=== PATIENT | male | born 1995 | race Caucasian/White ===

== ENCOUNTER 2019-12-04 22:00 | Emergency (ER) | payer SELFPAY ==
[~2019-12-04] VITALS: Ht 185 cm; Wt 115.0 kg
--- OUTSIDE RECORDS SUMMARY | 2019-12-04 22:07 | XMS REPORT | Continuity Of Care Document ---
Author Author [facility] Organization [facility] Address [address] [place] [address] Phone Care Team Providers Care Cable Puller Name Role Phone UNASSIGNED, ED PHYSICIAN Unavailable Unavailable MEET PRYOR, JAIRO Unavailable LINDA PRYOR, CLAUDIA De Oliveira AT Results Lab Results Visit/Account #[id number] (July 17, 2015 2:18pm - July 17, 2015 3:54pm) Test Result Date/Time 61180-6: COMPLETE BLOOD COUNT WITH DIFF WHITE BLOOD COUNT(4.0-11.0 10E3/UL) 11.4 10E3/UL July 17, 2015 2:30pm RED BLOOD COUNT(4.50-5.90 10E6/UL) 5.46 10E6/UL July 17, 2015 2:30pm HEMOGLOBIN(13.5-17.5 G/DL) 17.7 G/DL July 17, 2015 2:30pm HEMATOCRIT(41.0-53.0 %) 49.8 % July 17, 2015 2:30pm MEAN CORPUSCULAR VOLUME(82.0-100.0 FL) 91.2 FL July 17, 2015 2:30pm 11152-1: MEAN CORPUSCULAR HEMOGLOBIN(26. 0-34.0 PG) 32.4 PG July 17, 2015 2:30pm MEAN CORPUSCULAR HGB CONC(31.5-36.5 G/DL ) 35.5 G/DL July 17, 2015 2:30pm RED CELL DISTRIBUTION WIDTH(11.5-14.5 %) 12.2 % July 17, 2015 2:30pm 777-3: PLATELET COUNT(150-450 10E3/UL) 229 10E3/UL July 17, 2015 2:30pm MEAN PLATELET VOLUME(8.2-12.4 FL) 10.0 FL July 17, 2015 2:30pm 770-8: NEUTROPHILS % (AUTO)(40-70 %) 72 % July 17, 2015 2:30pm LYMPHOCYTES % (AUTO)(15-45 %) 15 % July 17, 2015 2:30pm 5905-5: MONOCYTES % (AUTO)(2-10 %) 8 % July 17, 2015 2:30pm 713-8: EOSINOPHILS % (AUTO)(0-6 %) 4 % July 17, 2015 2:30pm 706-2: BASOPHILS % (AUTO)(0-1 %) 1 % July 17, 2015 2:30pm 25947-6: IMMATURE GRANS % (AUTO)(0-0 %) 1 % July 17, 2015 2:30pm NUCLEATED RBCS (AUTO)(0-0 %) 0 % July 17, 2015 2:30pm 751-8: NEUTROPHILS # (AUTO)(2.5-7.5 10E3 /UL) 8.2 10E3/UL July 17, 2015 2:30pm 52617-2: LYMPHOCYTES # (AUTO)(1.0-4.0 10 E3/UL) 1.7 10E3/UL July 17, 2015 2:30pm 742-7: MONOCYTES # (AUTO)(0.2-0.8 10E3/U L) 0.9 10E3/UL July 17, 2015 2:30pm 711-2: EOSINOPHILS # (AUTO)(0.0-0.4 10E3 /UL) 0.4 10E3/UL July 17, 2015 2:30pm 704-7: BASOPHILS # (AUTO)(0.0-0.2 10E3/U L) 0.1 10E3/UL July 17, 2015 2:30pm IMMATURE GRANS # (AUTO)(0.0-0.0 10E3/UL) 0.1 10E3/UL July 17, 2015 2:30pm DIFF TYPE AUTOMATED July 17, 2015 2:30pm UA WITH SCREEN FOR CULTURE 5778-6: COLOR,URINE YELLOW July 17, 2015 2:25pm 12200-3: CLARITY,URINE CLEAR July 17, 2015 2:25pm GLUCOSE, URINE(NEGATIVE MG/DL) NEGATIVE MG/DL July 17, 2015 2:25pm URINE BILIRUBIN(NEGATIVE) SMALL July 17, 2015 2:25pm 22870-6: KETONES,URINE(NEGATIVE MG/DL) TRACE MG/DL July 17, 2015 2:25pm 2965-2: URINE SPECIFIC GRAVITY(1.001-1.0 35) Greater than or equal to 1.030 July 17, 2015 2:25pm 11250-5: URINE BLOOD(NEGATIVE) NEGATIVE July 17, 2015 2:25pm 2756-5: URINE PH(5.0-9.0) 5.5 July 17, 2015 2:25pm URINE PROTEIN(Less than 20 MG/DL) TRACE MG/DL July 17, 2015 2:25pm URINE UROBILINOGEN(0.2-1.0 MG/DL) 0.2 MG/DL July 17, 2015 2:25pm URINE NITRITE(NEGATIVE) NEGATIVE July 17, 2015 2:25pm 5799-2: LEUKOCYTE ESTERASE ,URINE(NEGATI VE) NEGATIVE July 17, 2015 2:25pm 630-4: URINE CULTURE NOT INDICATED July 17, 2015 2:25pm URINE MICROSCOPIC REQUIRED YES July 17, 2015 2:25pm URINE WBCS(/HPF) 0-3 /HPF July 17, 2015 2:25pm 11138-3: URINE RBCS(/HPF) 0-3 /HPF July 17, 2015 2:25pm 90474-5: URINE EPITHELIAL CELLS(/HPF) 0-3 /HPF July 17, 2015 2:25pm BACTERIA,URINE(/HPF) NONE SEEN /HPF July 17, 2015 2:25pm URINE CRYSTALS(/HPF) 1+ AMORPHOUS /HPF July 17, 2015 2:25pm URINE CASTS(/LPF) NONE SEEN /LPF July 17, 2015 2:25pm URINE COMMENTS 3+ MUCOUS July 17, 2015 2:25pm 83796-0: COMPLETE METABOLIC PROFILE GLUCOSE(70-110 MG/DL) 97 MG/DL July 17, 2015 2:30pm BLOOD UREA NITROGEN(6-20 MG/DL) 15 MG/DL July 17, 2015 2:30pm CREATININE(0.30-1.00 MG/DL) 0.86 MG/DL July 17, 2015 2:30pm 19643-2: EST GLOMERULAR FILTRATION RATE( Greater than or equal to 60) Greater than or equal to 60 Result Comments: If the patient is of -[place] descent/extraction multiply the eGFR value by 1.212 to obtain the actual eGFR. >=60 mg/dL Normal 30-59 mg/dL Moderate Kidney Disease 15-29 mg/dL Severe Kidney Disease <15 mg/dL Kidney Failure July 17, 2015 2:30pm BUN CREATININE RATIO(10.0-20.0 RATIO) 17.0 RATIO July 17, 2015 2:30pm SODIUM(135-145 MMOL/L) 136 MMOL/L July 17, 2015 2:30pm POTASSIUM(3.6-5.0 MMOL/L) 3.9 MMOL/L July 17, 2015 2:30pm CHLORIDE(101-111 MMOL/L) 101 MMOL/L July 17, 2015 2:30pm 8-9: CO2(21-31 MMOL/L) 25.0 MMOL/L July 17, 2015 2:30pm 83435-6: ANION GAP(8-18) 14 July 17, 2015 2:30pm OSMO CALCULATED(270.0-290.0) 272.7 July 17, 2015 2:30pm CALCIUM(8.5-10.5 MG/DL) 10.0 MG/DL July 17, 2015 2:30pm BILIRUBIN,TOTAL(0.1-1.2 MG/DL) 1.0 MG/DL July 17, 2015 2:30pm ALKALINE PHOSPHATASE(42-121 IU/L) 94 IU/L July 17, 2015 2:30pm ASPARTATE AMINO TRANSFERASE(13-38 IU/L) 33 IU/L July 17, 2015 2:30pm ALANINE AMINOTRANSFERASE(8-29 IU/L) 68 IU/L July 17, 2015 2:30pm 52337-8: TOTAL PROTEIN(6.1-8.0 G/DL) 9.2 G/DL July 17, 2015 2:30pm ALBUMIN(3.5-5.5 G/DL) 5.5 G/DL July 17, 2015 2:30pm 2336-6: GLOBULIN(2.4-3.6) 3.7 July 17, 2015 2:30pm ALBUMIN/GLOBULIN RATIO(0.9-1.8 RATIO) 1.5 RATIO July 17, 2015 2:30pm 3040-3: LIPASE 3040-3: LIPASE(22-51 U/L) 23 U/L July 17, 2015 2:30pm Allergies and Adverse Reactions Allergies and Adverse Reactions Patient Unit Number: [id number] Agent Type Reaction Severity Status NO KNOWN ALLERGIES Drug Allergy Unknown Unknown Active Problem List Problem List Visit/Account #[id number] (July 17, 2015 2:18pm - July 17, 2015 3:54pm) Acute Problems: Code/Condition Comments Documented Start Date Documented Resolv ed Date Code(s) Acute viral syndrome ICD10: B34.9 Acute viral syndrome ICD9: 079.99 Acute viral syndrome SNOMED: 87893303 Acute viral syndrome Plan of Care Plan Of Care Visit/Account #[id number] (July 17, 2015 2:18pm - July 17, 2015 3:54pm) Patient Instructions 1. Return for any new or worse symptoms 2. Follow up with your primary doctor t his week 3. Take Imodium over the counter medici ne as needed for diarrhea Vital Signs Vital Signs Visit/Account #[id number] (July 17, 2015 2:18pm - July 17, 2015 3:54pm) Sign First Result Last Result Code(s) Body Mass Index Body Mass Index (BMI): 29.0 kg/m2 On 2015 2:17pm 55874-8 BMI (body mass index) Body Mass Index as a Calculated Value 29.1 kg/m2 On July 17, 2015 2:17pm 08481-6 BMI (body mass index) Body Surface Area as a Calculated Value 2.24 m2 On July 17, 2015 2:17pm 3140-1 BSA (body surface area) Height (Feet/Inches) 6 [ft_us] 1 [in_us] On July 17, 2015 2:17pm Temperature in Fahrenheit Temperature (Fahrenheit): 97.5 [degF] O n July 17, 2015 2:17pm Temperature (Fahrenheit): 97.6 [degF] O n July 17, 2015 3:54pm 8310-5 Body Temperature Weight in Kilograms Weight (Kilograms): 100 kg On June 302015 2:17pm 3141-9 Weight Measured 50168-5 Body weight measured in kilogra ms Functional Status Functional and Cognitive Status No Functional Status Data Medications Inpatient/Ordered Medications - Medicati ons administered during hospital visit Visit/Account #[id number] (July 17, 2015 2:18pm - July 17, 2015 3:54pm) Medication Route Sig/Schedule Precondition/Indication Comments/I nstructions Codes IV Medication Carriers: NORMAL SALINE(SODIUM CHLORIDE) 1000 ML INJECTION Dose: 1000 ML INTRAVEN .Q1H (Rate: 1000 MLS/HR Duration: 1 HR) Carriers: Sodium Chloride 0.154 MEQ/ML Injectable Solution (RxNorm): 943560 NORMAL SALINE (SODIUM CHLORIDE) NDC: 38390390122 IV Medication Additives: PHENERGAN INJ(PROMETHazine HCL) 25 MG/ML INJECTION Dose: 25 MG Carriers: SODIUM CHLORIDE 100 ML INJECTION Dose: 100 ML INTRAVEN NOW (Rate: 404 MLS/HR Duration: 15 MIN) Additives: Promethazine Hydrochloride 25 MG/ML Injectable Solution (RxNorm): 041574 PHENERGAN INJ (PROMETHazine HCL) NDC: 93044007083 Carriers: Sodium Chloride 0.154 MEQ/ML Injectable Solution (RxNorm): 250023 (SODIUM CHLORIDE) NDC: 79056730196 IMODIUM SOLN(LOPERAMIDE HCL) 2 MG/15 ML LIQUID Dose: 30 ML ORAL NOW Loperamide Hydrochloride 0.133 MG/ML Ora l Suspension (RxNorm): 1434725 IMODIUM SOLN (LOPERAMIDE HCL) NDC: 62102770959 BENTYL(DICYCLOMINE HCL) 10 MG CAP Dose: 20 MG ORAL NOW Label Comments: MAY INCREASE FALL RISK Dicyclomine Hydrochloride 10 MG Oral Cap leah (RxNorm): 187523 BENTYL (DICYCLOMINE HCL) NDC: 78424436972 Discharge Medications - Medications that patient should continue to take. Review with physician Visit/Account #[id number] (July 17, 2015 2:18pm - July 17, 2015 3:54pm) Medication Route Sig/Schedule Precondition/Indication Comments/I nstructions Codes PHENERGAN(PROMETHazine HCL) 25 MG TAB Dose: 25 MG ORAL 4 TIMES DAILY NAUSEA Promethazine Hydrochloride 25 MG Oral Ta blet (RxNorm): 571680 PHENERGAN (PROMETHazine HCL) NDC: 06814206676 Bentyl(DICYCLOMINE HCL) 20 MG TABLET Dose: 20 MG ORAL 4 TIMES DAILY PAIN Dicyclomine Hydrochloride 20 MG Oral Tab let (RxNorm): 921789 Bentyl (DICYCLOMINE HCL) [facility]: [id number] History Of Encounters Encounters Visit/Account #[id number] (July 17, 2015 2:18pm - July 17, 2015 3:54pm) Account Status Physican Of Record Reason For Visit Visit Diagnosis Start Date/Time Stop Date/Time ER CLAUDIA MCKEON MD ? FOOD POISONING R10.9: UNSPECIFIED ABDOMINAL PAIN ICD10 Jul 17, 2015 2:18pm Jul 17, 2015 3:54pm History of Procedures Procedure List No procedures recorded. Discharge Instructions Discharge Instructions Visit/Account #[id number] (July 17, 2015 2:18pm - July 17, 2015 3:54pm) DISCHARGE INSTRUCTIONS Physician Galileo garay Social History Social History No Social History Data. Immunizations Immunizations Patient Unit Number: [id number] Immunizations No immunizations recorded.
--- OUTSIDE RECORDS SUMMARY | 2019-12-04 22:07 | XMS REPORT | Continuity Of Care Document ---
Author Author [facility] Organization [facility] Address [address] [place] [address] Phone Care Team Providers Care Mobile Lounge Driver Or Operator Name Role Phone UNASSIGNED, ED PHYSICIAN Unavailable Unavailable KURT LOWE MD AT NON STAFF, PROVIDER Unavailable Unavailable Results Lab Results Visit/Account #[id number] (January 16 16 4:16pm - January 17, 2016 5:24pm) Test Result Date/Time 79663-1: COMPLETE BLOOD COUNT WITH DIFF WHITE BLOOD COUNT(4.0-11.0 10E3/UL) 8.9 10E3/UL January 17, 2016 4:30pm RED BLOOD COUNT(4.50-5.90 10E6/UL) 4.65 10E6/UL January 17, 2016 4:30pm HEMOGLOBIN(13.5-17.5 G/DL) 14.7 G/DL January 17, 2016 4:30pm HEMATOCRIT(41.0-53.0 %) 41.4 % January 17, 2016 4:30pm MEAN CORPUSCULAR VOLUME(82.0-100.0 FL) 89.0 FL January 17, 2016 4:30pm 64869-0: MEAN CORPUSCULAR HEMOGLOBIN(26. 0-34.0 PG) 31.6 PG January 17, 2016 4:30pm MEAN CORPUSCULAR HGB CONC(31.5-36.5 G/DL ) 35.5 G/DL January 17, 2016 4:30pm RED CELL DISTRIBUTION WIDTH(11.5-14.5 %) 11.8 % January 17, 2016 4:30pm 777-3: PLATELET COUNT(150-450 10E3/UL) 208 10E3/UL January 17, 2016 4:30pm MEAN PLATELET VOLUME(8.2-12.4 FL) 10.6 FL January 17, 2016 4:30pm 770-8: NEUTROPHILS % (AUTO)(40-70 %) 56 % January 17, 2016 4:30pm LYMPHOCYTES % (AUTO)(15-45 %) 31 % January 17, 2016 4:30pm 5905-5: MONOCYTES % (AUTO)(2-10 %) 7 % January 17, 2016 4:30pm 713-8: EOSINOPHILS % (AUTO)(0-6 %) 4 % January 17, 2016 4:30pm 706-2: BASOPHILS % (AUTO)(0-1 %) 1 % January 17, 2016 4:30pm 78634-5: IMMATURE GRANS % (AUTO)(0-0 %) 0 % January 17, 2016 4:30pm NUCLEATED RBCS (AUTO)(0-0 %) 0 % January 17, 2016 4:30pm 751-8: NEUTROPHILS # (AUTO)(2.5-7.5 10E3 /UL) 5.0 10E3/UL January 17, 2016 4:30pm 08681-3: LYMPHOCYTES # (AUTO)(1.0-4.0 10 E3/UL) 2.8 10E3/UL January 17, 2016 4:30pm 742-7: MONOCYTES # (AUTO)(0.2-0.8 10E3/U L) 0.7 10E3/UL January 17, 2016 4:30pm 711-2: EOSINOPHILS # (AUTO)(0.0-0.4 10E3 /UL) 0.4 10E3/UL January 17, 2016 4:30pm 704-7: BASOPHILS # (AUTO)(0.0-0.2 10E3/U L) 0.1 10E3/UL January 17, 2016 4:30pm IMMATURE GRANS # (AUTO)(0.0-0.0 10E3/UL) 0.0 10E3/UL January 17, 2016 4:30pm DIFF TYPE AUTOMATED January 17, 2016 4:30pm 68659-6: D-DIMER 11307-1: D-DIMER(0.00-0.49 UG/ML) 0.30 UG/ML January 17, 2016 4:30pm 07493-2: URINALYSIS 5778-6: COLOR,URINE YELLOW January 17, 2016 4:43pm 57850-7: CLARITY,URINE CLEAR January 17, 2016 4:43pm GLUCOSE, URINE(NEGATIVE MG/DL) NEGATIVE MG/DL January 17, 2016 4:43pm URINE BILIRUBIN(NEGATIVE) NEGATIVE January 17, 2016 4:43pm KETONES,URINE(NEGATIVE MG/DL) NEGATIVE MG/DL January 17, 2016 4:43pm URINE SPECIFIC GRAVITY(1.001-1.035) Greater than or equal to 1.030 January 17, 2016 4:43pm 38159-6: URINE BLOOD(NEGATIVE) NEGATIVE January 17, 2016 4:43pm 2756-5: URINE PH(5.0-9.0) 6.0 January 17, 2016 4:43pm URINE PROTEIN(Less than 20 MG/DL) NEGATIVE MG/DL January 17, 2016 4:43pm 95378-6: URINE UROBILINOGEN(0.2-1.0 MG/D L) 0.2 MG/DL January 17, 2016 4:43pm URINE NITRITE(NEGATIVE) NEGATIVE January 17, 2016 4:43pm 5799-2: LEUKOCYTE ESTERASE ,URINE(NEGATI VE) NEGATIVE January 17, 2016 4:43pm URINE MICROSCOPIC REQUIRED NO January 17, 2016 4:43pm 53589-0: COMPLETE METABOLIC PROFILE GLUCOSE(70-110 MG/DL) 90 MG/DL January 17, 2016 4:30pm BLOOD UREA NITROGEN(6-20 MG/DL) 15 MG/DL January 17, 2016 4:30pm CREATININE(0.50-1.20 MG/DL) 0.92 MG/DL January 17, 2016 4:30pm 75108-5: EST GLOMERULAR FILTRATION RATE( Greater than or equal to 60) Greater than or equal to 60 Result Comments: If the patient is of -[place] descent/extraction multiply the eGFR value by 1.212 to obtain the actual eGFR. >=60 mg/dL Normal 30-59 mg/dL Moderate Kidney Disease 15-29 mg/dL Severe Kidney Disease <15 mg/dL Kidney Failure January 17, 2016 4:30pm BUN CREATININE RATIO(10.0-20.0 RATIO) 16.0 RATIO January 17, 2016 4:30pm SODIUM(135-145 MMOL/L) 137 MMOL/L January 17, 2016 4:30pm POTASSIUM(3.6-5.0 MMOL/L) 4.0 MMOL/L January 17, 2016 4:30pm CHLORIDE(101-111 MMOL/L) 106 MMOL/L January 17, 2016 4:30pm 9: CO2(21-31 MMOL/L) 24 MMOL/L January 17, 2016 4:30pm ANION GAP(8-18) 11 January 17, 2016 4:30pm OSMO CALCULATED(270.0-290.0) 274.2 January 17, 2016 4:30pm CALCIUM(8.5-10.5 MG/DL) 9.5 MG/DL January 17, 2016 4:30pm BILIRUBIN,TOTAL(0.1-1.2 MG/DL) 0.7 MG/DL January 17, 2016 4:30pm ALKALINE PHOSPHATASE(42-121 IU/L) 79 IU/L January 17, 2016 4:30pm ASPARTATE AMINO TRANSFERASE(13-38 IU/L) 28 IU/L January 17, 2016 4:30pm ALANINE AMINOTRANSFERASE(8-29 IU/L) 44 IU/L January 17, 2016 4:30pm TOTAL PROTEIN(6.4-8.2 G/DL) 7.6 G/DL January 17, 2016 4:30pm ALBUMIN(3.5-5.5 G/DL) 4.8 G/DL January 17, 2016 4:30pm GLOBULIN(2.4-3.6) 2.8 January 17, 2016 4:30pm ALBUMIN/GLOBULIN RATIO(0.9-1.8 RATIO) 1.7 RATIO January 17, 2016 4:30pm 40866-2: CARDIAC TROPONIN I 51450-0: CARDIAC TROPONIN I(0.01-0.04 NG /ML) Less than 0.01 NG/ML Result Comments: REFERENCE RANGES: NEGATIVE < 0.04 NG/ML POSSIBLE MYCARDIAL INVOLVEMENT >/= 0.04 NG/ML INTERPRET TROPONIN I RESULT IN LIGHT OF THE TOTAL CLINICAL PRESENTATION INCLUDING CLINICAL HISTORY. ANY CONDITION RESULTING IN MYOCARDIAL INJURY CAN POTENTIALLY ELEVATE TROPONIN I LEVELS ABOVE EXPECTED NORMAL RANGES. NOTE NEW REFERENCE RANGE January 17, 2016 4:30pm Allergies and Adverse Reactions Allergies and Adverse Reactions Patient Unit Number: [id number] Agent Type Reaction Severity Status NO KNOWN ALLERGIES Drug Allergy Unknown Unknown Active Problem List Problem List Visit/Account #[id number] (January 16 4:16pm - January 17, 2016 5:24pm) Acute Problems: Code/Condition Comments Documented Start Date Documented Resolv ed Date Code(s) Heat syncope, initial encounter ICD10: T67.1XXA Heat syncope ICD9: 992.1 Heat syncope SNOMED: 85237935 Heat syncope Plan of Care Plan Of Care Visit/Account #[id number] (January 16 4:16pm - January 17, 2016 5:24pm) Patient Instructions Follow with primary care Dr. in 5-7 days . Drink a lot of oral fluids and take adequate rest. Return to the emergency room if symptoms worsens or has any concern. Vital Signs Vital Signs Visit/Account #[id number] (January 16 4:16pm - January 17, 2016 5:24pm) Sign First Result Last Result Code(s) Temperature in Fahrenheit Temperature (Fahrenheit): 101.2 [degF] On January 17, 2016 4:15pm Temperature (Fahrenheit): 98.2 [degF] O n January 17, 2016 5:24pm 8310-5 Body Temperature Weight in Kilograms Weight (Kilograms): 111.2 kg On December 4:15pm 3141-9 Weight Measured 08007-0 Body weight measured in kilogra ms Functional Status Functional and Cognitive Status No Functional Status Data Medications Inpatient/Ordered Medications - Medicati ons administered during hospital visit Visit/Account #[id number] (January 16 4:16pm - January 17, 2016 5:24pm) Medication Route Sig/Schedule Precondition/Indication Comments/I nstructions Codes IV Medication Carriers: NORMAL SALINE(SODIUM CHLORIDE) 1000 ML INJECTION Dose: 1000 ML INTRAVEN .Q1H (Rate: 1000 MLS/HR Duration: 1 HR) Carriers: Sodium Chloride 0.154 MEQ/ML Injectable Solution (RxNorm): 986354 NORMAL SALINE (SODIUM CHLORIDE) [facility]: 99132485977 History Of Encounters Encounters Visit/Account #[id number] (January 16 4:16pm - January 17, 2016 5:24pm) Account Status Physican Of Record Reason For Visit Visit Diagnosis Start Date/Time Stop Date/Time ER KURT LOWE MD WORKING IN HEAT, PASSED OUT R50.9: FEVER, UNSPECIFIED ICD10 Jan 17, 2016 4:16pm Jan 17, 2016 5:24pm History of Procedures Procedure List No procedures recorded. Discharge Instructions Discharge Instructions Visit/Account #[id number] (January 16 4:16pm - January 17, 2016 5:24pm) DISCHARGE INSTRUCTIONS Physician Galileo garay Social History Social History No Social History Data. Immunizations Immunizations Patient Unit Number: [id number] Immunizations No immunizations recorded.
--- OUTSIDE RECORDS SUMMARY | 2019-12-04 22:07 | XMS REPORT | Continuity Of Care Document ---
Author Author [facility] Organization [facility] Address [address] [place] [address] Phone Care Team Providers Care Water Pollution Specialist Name Role Phone COLIN PRYOR, MACK Bradley AT Results Results No results recorded. Allergies and Adverse Reactions Allergies and Adverse Reactions Patient Unit Number: [id number] Agent Type Reaction Severity Status NO KNOWN ALLERGIES Drug Allergy Unknown Unknown Active Problem List Problem List Visit/Account #[id number] (September 09 5:53am - September 10, 2015 6:16am) Acute Problems: Code/Condition Comments Documented Start Date Documented Resolv ed Date Code(s) Lower GI bleed ICD10: K92.2 Lower gastrointestinal hemorrhage ICD9: 578.9 Lower gastrointestinal hemorrhage SNOMED: 81643254 Lower gastrointestinal hemorrhage Plan of Care Plan Of Care Visit/Account #[id number] (September 09 5:53am - September 10, 2015 6:16am) Patient Instructions Followup with Dr Melgoza, primary docto r or Dr Cortes, doctor that would do the colonoscopy, call on Friday Return for abdominal pain, increased bleeding, passing out, any concern Vital Signs Vital Signs Visit/Account #[id number] (September 09 5:53am - September 10, 2015 6:16am) Sign First Result Last Result Code(s) Body Mass Index Body Mass Index (BMI): 33.0 kg/m2 On [facility] 2015 5:52am 85569-2 BMI (body mass index) Body Mass Index as a Calculated Value 33.1 kg/m2 On September 10, 2015 5:52am 03178-8 BMI (body mass index) Body Surface Area as a Calculated Value 2.37 m2 On September 10, 2015 5:52am 3140-1 BSA (body surface area) Height (Feet/Inches) 6 [ft_us] 1 [in_us] On September 10, 2015 5 :52am Temperature in Fahrenheit Temperature (Fahrenheit): 97.9 [degF] O n September 10, 2015 5:52am 8310-5 Body Temperature Weight in Kilograms Weight (Kilograms): 113.64 kg On September 10, 2015 5:52am 3141-9 Weight Measured 23505-7 Body weight measured in kilogra ms Functional Status Functional and Cognitive Status No Functional Status Data Medications Medications Patient Unit Number: [id number] Medication No medications recorded. History Of Encounters Encounters Visit/Account #[id number] (September 09 016 5:53am - September 10, 2015 6:16am) Account Status Physican Of Record Reason For Visit Visit Diagnosis Start Date/Time Stop Date/Time LAMONT SHAW MD RECTAL BLOOD K92.1: MELENA ICD10 Sep 10, 2015 5:53am Sep 10, 2015 6:16am History of Procedures Procedure List No procedures recorded. Discharge Instructions Discharge Instructions Visit/Account #[id number] (September 09 016 5:53am - September 10, 2015 6:16am) DISCHARGE INSTRUCTIONS Physician Galileo garay Social History Social History No Social History Data. Immunizations Immunizations Patient Unit Number: [id number] Immunizations No immunizations recorded.
--- OUTSIDE RECORDS SUMMARY | 2019-12-04 22:07 | XMS REPORT | Continuity Of Care Document ---
Author Author [facility] r Organization [facility] Address [address] [place] [address] Phone Care Team Providers Care Checker And Packer Name Role Phone KURT LOWE MD AT Results Results No results recorded. Allergies and Adverse Reactions Allergies and Adverse Reactions Patient Unit Number: [id number] Agent Type Reaction Severity Status NO KNOWN ALLERGIES Drug Allergy Unknown Unknown Active Problem List Problem List Visit/Account #[id number] (September 26 5:49pm - September 26, 2017 8:00pm) Acute Problems: Code/Condition Comments Documented Start Date Documented Resolv ed Date Code(s) Puncture wound ICD9: 879.8 Puncture wound SNOMED: 486239141 Puncture wound Elbow pain, left ICD10: M25.522 Elbow pain, left SNOMED: 81256799 Left elbow pain Knee pain, right ICD10: M25.561 Knee pain, right SNOMED: 91723392 Right knee pain Plan of Care Plan Of Care Visit/Account #[id number] (September 26 018 5:49pm - September 26, 2017 8:00pm) Patient Instructions Keep affected area clean and dry. May cl eanse with soap and warm water. Do not soak in bathtub, hot tub, pool, etc. until stitches are removed. Wear sling as needed for comfort. Return in 7-10 days for suture removal. May return to ED, minor emergency clinic, or PCP. Watch for signs of infection such as increasing redness, pain, warmth, or yellow/green drainage from wound. Return to ED for new concerns or worsening symptoms. Vital Signs Vital Signs Visit/Account #[id number] (September 26 5:49pm - September 26, 2017 8:00pm) Sign First Result Last Result Code(s) Temperature in Fahrenheit Temperature (Fahrenheit): 98.0 [degF] O n September 26, 2017 5:43pm Temperature (Fahrenheit): 98.0 [degF] O n September 26, 2017 8:00pm 8310-5 Body Temperature Weight in Kilograms Weight (Kilograms): 127.2700 kg On 2017 5:43pm 3141-9 Weight Measured Functional Status Functional and Cognitive Status No Functional Status Data Medications Inpatient/Ordered Medications - Medicati ons administered during hospital visit Visit/Account #[id number] (September 26 5:49pm - September 26, 2017 8:00pm) Medication Route Sig/Schedule Precondition/Indication Comments/I nstructions Codes NORCO 7.5-325(HYDROcodone BIT/ACETAMINOP HEN) 1 TAB TAB Dose: 1 TAB ORAL NOW Label Comments: <<may be substituted for 7.5/500>> REC MAX DAILY ACETAMINOPHEN: 4000 MG/24 HR MAY INCREASE FALL RISK Acetaminophen 325 MG / Hydrocodone Angelo trate 7.5 MG Oral Tablet (RxNorm): 851259 NORCO 7.5-325 (HYDROcodone BIT/ACETAMINOPHEN) NDC: 98181007140 BACITRACIN 0.9 GM OINTMENT Dose: 0 GM TOPICALLY DAILY Label Comments: 1 APPLICATION Special Dose Instructions: 1 APPLICATION TO bacitracin zinc 0.5 UNT/MG Topical Ointm ent (RxNorm): 6805809 (BACITRACIN) NDC: 01469753014 Discharge Medications - Medications that patient should continue to take. Review with physician Visit/Account #[id number] (September 26 5:49pm - September 26, 2017 8:00pm) Medication Route Sig/Schedule Precondition/Indication Comments/I nstructions Codes KEFLEX(CEPHALEXIN MONOHYDRATE) 500 MG CA PSULE Dose: 500 MG ORAL 3 TIMES A DAY Cephalexin 500 MG Oral Capsule (RxNorm): 365904 KEFLEX (CEPHALEXIN MONOHYDRATE) NDC: 60317778362 History Of Encounters Encounters Visit/Account #[id number] (September 26 5:49pm - September 26, 2017 8:00pm) Account Status Physican Of Record Reason For Visit Visit Diagnosis Start Date/Time Stop Date/Time ER KURT LOWE MD LAC TO LEFT ELBOW S51.032A: PUNCTURE WOUND W/O FOREIGN BOD Y OF LEFT ELBOW, INIT ENCNTR ICD10 Sep 26, 2017 5:49pm Sep 26, 2017 8:00pm History of Procedures Procedure List No procedures recorded. Discharge Instructions Discharge Instructions Visit/Account #[id number] (September 26 5:49pm - September 26, 2017 8:00pm) DISCHARGE INSTRUCTIONS Physician Galileo garay Social History Social History No Social History Data. Immunizations Immunizations Visit/Account #[id number] (September 26 5:49pm - September 26, 2017 8:00pm) Immunization Date Comments/Instructions Codes ADACEL(DIPHTH/TETANUS/ACEL. PERTUSSIS) 0 .5 ML INJECTION September 26, 2017 7:51pm Label Comments: Review Vaccine Information Sheet with patient and complete Vaccine Documentation/Consent Form prior to administering dose. *FAX COMPLETED PROVIDER INFORMATION SIDE OF VACCINE DOCUMENTATION FORM TO PRIMARY PHYSICIAN'S OFFICE AND PLACE ON CHART* TAYLOR BEST ADACEL (DIPHTH/TETANUS/ACEL. PERTUSSIS) [facility]: [id number]
--- OUTSIDE RECORDS SUMMARY | 2019-12-04 22:07 | XMS REPORT | Continuity Of Care Document ---
Author Author [facility] Organization [facility] Address [address] [place] [address] Phone Care Team Providers Care Atm Manager Name Role Phone NON STAFF, PROVIDER Unavailable Unavailable SRIKANTH PRYOR, NICCI Thorpe AT Results Results No results recorded. Allergies and Adverse Reactions Allergies and Adverse Reactions Patient Unit Number: [id number] Agent Type Reaction Severity Status NO KNOWN ALLERGIES Drug Allergy Unknown Unknown Active Problem List Problem List No problem list recorded. Plan of Care Plan Of Care Visit/Account #[id number] (November 17 4:19pm - November 17, 2016 5:43pm) Patient Instructions 1. Home, rest 2. Keep splint in place except to shower 3. Follow-up with PCP for a recheck in o ne week 4. Take ibuprofen for pain, norco 1-2 ta bs every 6 hours as needed for breakthrough pain. do not drive or operate machinery after taking Vital Signs Vital Signs Visit/Account #[id number] (November 17 7 4:19pm - November 17, 2016 5:43pm) Sign First Result Last Result Code(s) Temperature in Fahrenheit Temperature (Fahrenheit): 98.5 [degF] O n November 17, 2016 4:15pm Temperature (Fahrenheit): 98.1 [degF] O n November 17, 2016 5:43pm 8310-5 Body Temperature Weight in Kilograms Weight (Kilograms): 123.0000 kg On November 17, 2016 4:15pm 3141-9 Weight Measured Functional Status Functional and Cognitive Status No Functional Status Data Medications Discharge Medications - Medications that patient should continue to take. Review with physician Visit/Account #[id number] (November 17 4:19pm - November 17, 2016 5:43pm) Medication Route Sig/Schedule Precondition/Indication Comments/I nstructions Codes NORCO 5-325 TABLET(HYDROcodone BIT/ACETA MINOPHEN) 1 EACH TABLET Dose: 1-2 TAB ORAL EVERY 6 HOURS PAIN Acetaminophen 325 MG / Hydrocodone Angelo trate 5 MG Oral Tablet (RxNorm): 864786 NORCO 5-325 TABLET (HYDROcodone BIT/ACETAMINOPHEN) NDC: 44241806034 History Of Encounters Encounters Visit/Account #[id number] (November 17 4:19pm - November 17, 2016 5:43pm) Account Status Physican Of Record Reason For Visit Visit Diagnosis Start Date/Time Stop Date/Time ER NICCI DUKE MD L 5TH FINGER VS CAR DOOR Not Available November 17, 2016 4:19pm November 17, 2016 5:43pm History of Procedures Procedure List No procedures recorded. Discharge Instructions Discharge Instructions Visit/Account #[id number] (November 17 4:19pm - November 17, 2016 5:43pm) DISCHARGE INSTRUCTIONS Physician Galileo garay Social History Social History No Social History Data. Immunizations Immunizations Visit/Account #[id number] (November 17 4:19pm - November 17, 2016 5:43pm) Immunization Date Comments/Instructions Codes ADACEL(DIPHTH/TETANUS/ACEL. PERTUSSIS) 0 .5 ML INJECTION November 17, 2016 4:43pm Label Comments: Review Vaccine Information Sheet with patient and complete Vaccine Documentation/Consent Form prior to administering dose. *FAX COMPLETED PROVIDER INFORMATION SIDE OF VACCINE DOCUMENTATION FORM TO PRIMARY PHYSICIAN'S OFFICE AND PLACE ON CHART* SHAKE WELL ADACEL (DIPHTH/TETANUS/ACEL. PERTUSSIS) CVX: 115 ADACEL (DIPHTH/TETANUS/ACEL. PERTUSSIS) ND: [phone]
--- OUTSIDE RECORDS SUMMARY | 2019-12-04 22:07 | XMS REPORT | Continuity Of Care Document ---
Author Author [facility] r Organization [facility] Address [address] [place] [address] Phone Care Team Providers Care Temporary Receptionist Name Role Phone UNASSIGNED, ED PHYSICIAN Unavailable Unavailable LINDA PRYOR, CLAUDIA De Oliveira AT Results Results No results recorded. Allergies and Adverse Reactions Allergies and Adverse Reactions Patient Unit Number: [id number] Agent Type Reaction Severity Status NO KNOWN ALLERGIES Drug Allergy Unknown Unknown Active Problem List Problem List No problem list recorded. Plan of Care Plan Of Care Visit/Account #[id number] (November 28 7:25pm - November 28, 2016 8:37pm) Patient Instructions Keep area clean and dry, wash with mild soap and water daily and reapply new dressing or bandage with antibiotic ointment Return for any new or worsening symptoms, any emergent concerns Vital Signs Vital Signs Visit/Account #[id number] (November 28 7:25pm - November 28, 2016 8:37pm) Sign First Result Last Result Code(s) Body Mass Index Body Mass Index (BMI): 33.0 kg/m2 On 2016 7:24pm 71087-3 BMI (body mass index) Body Mass Index as a Calculated Value 34.0 kg/m2 On November 28, 2016 7:24pm 09398-5 BMI (body mass index) Body Surface Area as a Calculated Value 2.34 m2 On November 28, 2016 7:24pm 3140-1 BSA (body surface area) Height (Feet/Inches) 6 [ft_us] On November 28, 2016 7:24pm 8302-2 Height Temperature in Fahrenheit Temperature (Fahrenheit): 98.0 [degF] O n November 28, 2016 7:24pm Temperature (Fahrenheit): 98.7 [degF] O n November 28, 2016 8:37pm 8310-5 Body Temperature Weight in Kilograms Weight (Kilograms): 113.6400 kg On November 28, 2016 7:24pm 3141-9 Weight Measured Functional Status Functional and Cognitive Status No Functional Status Data Medications Inpatient/Ordered Medications - Medicati ons administered during hospital visit Visit/Account #[id number] (November 28 7:25pm - November 28, 2016 8:37pm) Medication Route Sig/Schedule Precondition/Indication Comments/I nstructions Codes LET GEL SYR(LIDOCAINE/EPINEPHR/TETRACAIN E) 3 ML GEL Dose: 3 ML TOPICALLY NOW Label Comments: LIDOCAINE 4%-EPINEPHRINE 0.18%-TETRACAINE 0.5%-LUBR JELLY History Of Encounters Encounters Visit/Account #[id number] (November 28 7 7:25pm - November 28, 2016 8:37pm) Account Status Physican Of Record Reason For Visit Visit Diagnosis Start Date/Time Stop Date/Time ER CLAUDIA MCKEON MD CYST IN GROIN Not Available Nov 28, 2016 7:25pm Nov 28, 2016 8:37pm History of Procedures Procedure List No procedures recorded. Discharge Instructions Discharge Instructions Visit/Account #[id number] (November 28 7:25pm - November 28, 2016 8:37pm) DISCHARGE INSTRUCTIONS Physician Galileo garay Social History Social History No Social History Data. Immunizations Immunizations Patient Unit Number: [id number] Immunizations No immunizations recorded.
--- OUTSIDE RECORDS SUMMARY | 2019-12-04 22:07 | XMS REPORT | Continuity Of Care Document ---
Author Author [facility] r Organization [facility] Address [address] [place] [address] Phone Care Team Providers Care Snowboard Instructor Name Role Phone Unavailable Unavailable MEET PRYOR, JAIRO AT Results Results No results recorded. Allergies and Adverse Reactions Allergies and Adverse Reactions Patient Unit Number: [id number] Agent Type Reaction Severity Status NO KNOWN ALLERGIES Drug Allergy Unknown Unknown Active Problem List Problem List Visit/Account #[id number] (October 02 4:08pm - October 02, 2017 6:34pm) Acute Problems: Code/Condition Comments Documented Start Date Documented Resolv ed Date Code(s) Puncture wound ICD9: 879.8 Puncture wound SNOMED: 601402106 Puncture wound Plan of Care Plan Of Care Visit/Account #[id number] (October 02 4:08pm - October 02, 2017 6:34pm) Patient Instructions 1. Home, rest 2. Take antibiotics as prescribed 3. Warm compresses to the abscess once a day as well 4. Follow-up with ortho Dr. Ortega next week, call for an appt 5. Remove the packing in 48 hours 6. Return for any concerns or worsening Vital Signs Vital Signs Visit/Account #[id number] (October 02 4:08pm - October 02, 2017 6:34pm) Sign First Result Last Result Code(s) Temperature in Fahrenheit Temperature (Fahrenheit): 99.2 [degF] O n October 02, 2017 4:07pm Temperature (Fahrenheit): 98.0 [degF] O n October 02, 2017 6:34pm 8310-5 Body Temperature Functional Status Functional and Cognitive Status No Functional Status Data Medications Discharge Medications - Medications that patient should continue to take. Review with physician Visit/Account #[id number] (October 02 4:08pm - October 02, 2017 6:34pm) Medication Route Sig/Schedule Precondition/Indication Comments/I nstructions Codes BACTRIM DS(TRIMETHOPRIM/SULFAMETHOXAZOLE ) 1 EACH TABLET Dose: 1 TAB ORAL TWICE A DAY Sulfamethoxazole 800 MG / Trimethoprim 1 60 MG Oral Tablet [Bactrim] (RxNorm): 140145 BACTRIM DS (TRIMETHOPRIM/SULFAMETHOXAZOLE) NDC: 42327754089 KEFLEX(CEPHALEXIN MONOHYDRATE) 500 MG CA PSULE Dose: 500 MG ORAL EVERY 6 HOURS Cephalexin 500 MG Oral Capsule (RxNorm): 036614 KEFLEX (CEPHALEXIN MONOHYDRATE) NDC: 96542277884 History Of Encounters Encounters Visit/Account #[id number] (October 02 4:08pm - October 02, 2017 6:34pm) Account Status Physican Of Record Reason For Visit Visit Diagnosis Start Date/Time Stop Date/Time ER JAIRO DSOUZA MD LEFT ARM INFECTION S41.132A: PUNCTURE WOUND W/O FOREIGN BOD Y OF LEFT UPPER ARM, INIT ICD10 Oct 02, 2017 4:08pm Oct 02, 2017 6:34pm History of Procedures Procedure List No procedures recorded. Discharge Instructions Discharge Instructions Visit/Account #[id number] (October 02 4:08pm - October 02, 2017 6:34pm) DISCHARGE INSTRUCTIONS Physician Galileo garay Social History Social History No Social History Data. Immunizations Immunizations Patient Unit Number: [id number] Immunizations No immunizations recorded.
--- OUTSIDE RECORDS SUMMARY | 2019-12-04 22:07 | XMS REPORT | Continuity Of Care Document ---
Author Author [facility] Organization [facility] Address [address] [place] [address] Phone Care Team Providers Care Reinforced Ironworker Name Role Phone UNASSIGNED, ED PHYSICIAN Unavailable Unavailable CHRISSY PRYOR, KURT G AT Results Lab Results Visit/Account #[id number] (April 26, 2015 8:12pm - April 26, 2015 9:34pm) Test Result Date/Time 75935-9: URINALYSIS 5778-6: COLOR,URINE YELLOW April 26, 2015 8:47pm 62381-8: CLARITY,URINE CLEAR April 26, 2015 8:47pm GLUCOSE, URINE(NEGATIVE MG/DL) NEGATIVE MG/DL April 26, 2015 8:47pm URINE BILIRUBIN(NEGATIVE) NEGATIVE April 26, 2015 8:47pm 59316-7: KETONES,URINE(NEGATIVE MG/DL) NEGATIVE MG/DL April 26, 2015 8:47pm 2965-2: URINE SPECIFIC GRAVITY(1.001-1.0 35) 1.020 April 26, 2015 8:47pm 28577-3: URINE BLOOD(NEGATIVE) NEGATIVE April 26, 2015 8:47pm 2756-5: URINE PH(5.0-9.0) 6.0 April 26, 2015 8:47pm URINE PROTEIN(Less than 20 MG/DL) NEGATIVE MG/DL April 26, 2015 8:47pm URINE UROBILINOGEN(0.2-1.0 MG/DL) 0.2 MG/DL April 26, 2015 8:47pm URINE NITRITE(NEGATIVE) NEGATIVE April 26, 2015 8:47pm 5799-2: LEUKOCYTE ESTERASE ,URINE(NEGATI VE) NEGATIVE April 26, 2015 8:47pm URINE MICROSCOPIC REQUIRED NO April 26, 2015 8:47pm RAPID PLASMA REAGIN RAPID PLASMA REAGIN(NONREACTIVE) NONREACTIVE April 26, 2015 8:57pm HIV-1/O/2 44609-0: HIV-1/O/2 AB, QUAL(Non Reactive ) Non Reactive Result Comments: Performed at: [facility] [address] [address], [place], [place] [id number] Freezing Machine Operator: KATERINA Busby MD, Phone: [phone] April 26, 2015 8:57pm 51744-1: HIV-1/O/2 AB, INDEX(Less than 1 .00) Less than 1.00 Result Comments: Index Value: Specimen reactivity relative to the negative cutoff. April 26, 2015 8:57pm Microbiology Results Visit/Account #[id number] (April 26, 2015 8:12pm - April 26, 2015 9:34pm) Procedure Result CHLAMYDIA/GC (PCR) CHLAMYDIA/GC (PCR) Result Instance On April 26, 2015 8:47pm Source: URINE Result Prompts: CHLAMYDIA TRACHOMATIS NEGATIVE NEISSERIA GONORRHOEAE NEGATIVE Allergies and Adverse Reactions Allergies and Adverse Reactions Patient Unit Number: [id number] Agent Type Reaction Severity Status NO KNOWN ALLERGIES Drug Allergy Unknown Unknown Active Problem List Problem List Visit/Account #[id number] (April 26, 2015 8:12pm - April 26, 2015 9:34pm) Acute Problems: Code/Condition Comments Documented Start Date Documented Resolv ed Date Code(s) Balanoposthitis ICD10: N47.6 Balanoposthitis ICD9: 607.1 Balanoposthitis SNOMED: 03158100 Balanoposthitis Plan of Care Plan Of Care Visit/Account #[id number] (April 26, 2015 8:12pm - April 26, 2015 9:34pm) Patient Instructions Follow with her primary care DrNani in one week. Apply bactroban ointment tid for 7 days. Return to the emergency room if has any concerns. Vital Signs Vital Signs Visit/Account #[id number] (April 26, 2015 8:12pm - April 26, 2015 9:34pm) Sign First Result Last Result Code(s) Body Mass Index Body Mass Index (BMI): 27.0 kg/m2 On Oc 2014 8:08pm 22424-1 BMI (body mass index) Body Mass Index as a Calculated Value 27.7 kg/m2 On April 26, 2015 8:08pm 65580-4 BMI (body mass index) Body Surface Area as a Calculated Value 2.24 m2 On April 26, 2015 8:08pm 3140-1 BSA (body surface area) Height (Feet/Inches) 6 [ft_us] 2 [in_us] On April 26, 2015 8:08pm Temperature in Fahrenheit Temperature (Fahrenheit): 98.2 [degF] O n April 26, 2015 8:08pm Temperature (Fahrenheit): 98.3 [degF] O n April 26, 2015 9:33pm 8310-5 Body Temperature Weight in Kilograms Weight (Kilograms): 97.73 kg On April 26, 2015 8:08pm 3141-9 Weight Measured 35428-6 Body weight measured in kilogra ms Functional Status Functional and Cognitive Status No Functional Status Data Medications Discharge Medications - Medications that patient should continue to take. Review with physician Visit/Account #[id number] (April 26, 2015 8:12pm - April 26, 2015 9:34pm) Medication Route Sig/Schedule Precondition/Indication Comments/I nstructions Codes BACTROBAN 2% OINT(MUPIROCIN) 15 GM OINT. ..G. Dose: 1 APPL TOPICALLY 3 TIMES A DAY Mupirocin 0.02 MG/MG Topical Ointment [B actroban] (RxNorm): 120970 BACTROBAN 2% OINT (MUPIROCIN) NDC: 93189290639 History Of Encounters Encounters Visit/Account #[id number] (April 26, 2015 8:12pm - April 26, 2015 9:34pm) Account Status Physican Of Record Reason For Visit Visit Diagnosis Start Date/Time Stop Date/Time LAMONT LOWE MD CHECK FOR SYPHILIS R21: RASH AND OTHER NONSPECIFIC SKIN ERU PTION ICD10 Apr 26, 2015 8:12pm Apr 26, 2015 9:34pm History of Procedures Procedure List No procedures recorded. Discharge Instructions Discharge Instructions Visit/Account #[id number] (April 26, 2015 8:12pm - April 26, 2015 9:34pm) DISCHARGE INSTRUCTIONS Physician Galileo garay Social History Social History No Social History Data. Immunizations Immunizations Patient Unit Number: [id number] Immunizations No immunizations recorded.
--- OUTSIDE RECORDS SUMMARY | 2019-12-04 22:07 | XMS REPORT | Continuity Of Care Document ---
Author Author [facility] Organization [facility] Address [address] [place] [address] Phone Care Team Providers Care Tire Fabric Inspector Name Role Phone COLIN PRYOR, MACK Bradley AT Results Results No results recorded. Allergies and Adverse Reactions Allergies and Adverse Reactions Patient Unit Number: [id number] Agent Type Reaction Severity Status NO KNOWN ALLERGIES Drug Allergy Unknown Unknown Active Problem List Problem List Visit/Account #[id number] (September 09 5:53am - September 10, 2015 6:16am) Acute Problems: Code/Condition Comments Documented Start Date Documented Resolv ed Date Code(s) Lower GI bleed ICD10: K92.2 Lower gastrointestinal hemorrhage ICD9: 578.9 Lower gastrointestinal hemorrhage SNOMED: 70266293 Lower gastrointestinal hemorrhage Plan of Care Plan Of Care Visit/Account #[id number] (September 09 5:53am - September 10, 2015 6:16am) Patient Instructions Followup with Dr Melgoza, primary docto r or Dr Cortes, doctor that would do the colonoscopy, call on Friday Return for abdominal pain, increased bleeding, passing out, any concern Vital Signs Vital Signs Visit/Account #[id number] (September 09 5:53am - September 10, 2015 6:16am) Sign First Result Last Result Code(s) Body Mass Index Body Mass Index (BMI): 33.0 kg/m2 On [facility] 2015 5:52am 58367-9 BMI (body mass index) Body Mass Index as a Calculated Value 33.1 kg/m2 On September 10, 2015 5:52am 99370-4 BMI (body mass index) Body Surface Area [...] September 10, 2015 5:52am 3141-9 Weight Measured 54327-1 Body weight measured in kilogra ms Functional Status Functional and Cognitive Status No Functional Status Data Medications Medications Patient Unit Number: [id number] Medication No medications recorded. History Of Encounters Encounters Visit/Account #[id number] (September 09 5:53am - September 10, 2015 6:16am) Account Status Physican Of Record Reason For Visit Visit Diagnosis Start Date/Time Stop Date/Time LAMONT SHAW MD RECTAL BLOOD Not Available Sep 10, 2015 5:53am Sep 10, 2015 6:16am History of Procedures Procedure List No procedures recorded. Discharge Instructions Discharge Instructions Visit/Account #[id number] (September 09 016 5:53am - September 10, 2015 6:16am) DISCHARGE INSTRUCTIONS Physician Galileo garay Social History Social History No Social History Data. Immunizations Immunizations Patient Unit Number: [id number] Immunizations No immunizations recorded.
--- OUTSIDE RECORDS SUMMARY | 2019-12-04 22:07 | XMS REPORT | Continuity Of Care Document ---
Author Author [facility] Organization [facility] Address [address] [place] [address] Phone Care Team Providers Care Pump Installation And Servicer Name Role Phone UNASSIGNED, ED PHYSICIAN Unavailable Unavailable SRIKANTH PRYOR, NICCI Thorpe AT Results Microbiology Results Visit/Account #[id number] (February 282014 9:54pm - March 16, 2015 11:30pm) Procedure Result THROAT CULTURE THROAT CULTURE Result Instance On March 16, 2015 10:46pm Source: THROAT Special Result Comments: No growth GROUP A STREP SCREEN GROUP A STREP SCREEN Result Instance On March 16, 2015 10:46pm Source: THROAT Result Prompts: GROUP A STREP SCREEN NEGATIVE FOR GROUP A STREP ANTIGEN Allergies and Adverse Reactions Allergies and Adverse Reactions Patient Unit Number: [id number] Agent Type Reaction Severity Status NO KNOWN ALLERGIES Drug Allergy Unknown Unknown Active Problem List Problem List Visit/Account #[id number] (February 282014 9:54pm - March 16, 2015 11:30pm) Acute Problems: Code/Condition Comments Documented Start Date Documented Resolv ed Date Code(s) Pharyngitis ICD10: J02.9 Pharyngitis ICD9: 462 Pharyngitis SNOMED: 161997883 Pharyngitis Plan of Care Plan Of Care Visit/Account #[id number] (February 282014 9:54pm - March 16, 2015 11:30pm) Patient Instructions Home to rest. Use Tylenol and ibuprofen for discomfort. Vital Signs Vital Signs Visit/Account #[id number] (February 282014 9:54pm - March 16, 2015 11:30pm) Sign First Result Last Result Code(s) Temperature in Fahrenheit Temperature (Fahrenheit): 98.7 [degF] O n March 16, 2015 9:50pm Temperature (Fahrenheit): 98.3 [degF] O n March 16, 2015 11:25pm 8310-5 Body Temperature Weight in Kilograms Weight (Kilograms): 97.73 kg On 2014 9:50pm 3141-9 Weight Measured 75911-9 Body weight measured in kilogra ms Functional Status Functional and Cognitive Status No Functional Status Data Medications Medications Patient Unit Number: [id number] Medication No medications recorded. History Of Encounters Encounters Visit/Account #[id number] (February 282014 9:54pm - March 16, 2015 11:30pm) Account Status Physican Of Record Reason For Visit Visit Diagnosis Start Date/Time Stop Date/Time ER NICCI DUKE MD SORE THROAT 462: ACUTE PHARYNGITIS ICD9 Mar 16, 2015 9:54pm Mar 16, 2015 11:30pm History of Procedures Procedure List No procedures recorded. Discharge Instructions Discharge Instructions Visit/Account #[id number] (February 282014 9:54pm - March 16, 2015 11:30pm) DISCHARGE INSTRUCTIONS Physician Galileo garay Social History Social History No Social History Data. Immunizations Immunizations Patient Unit Number: [id number] Immunizations No immunizations recorded.
--- OUTSIDE RECORDS SUMMARY | 2019-12-04 22:07 | XMS REPORT | Continuity Of Care Document ---
Author Author [facility] Organization [facility] Address [address] [place] [address] Phone Care Team Providers Care Grain Inspector Name Role Phone UNASSIGNED, ED PHYSICIAN Unavailable Unavailable KURT LOWE MD AT NON STAFF, PROVIDER Unavailable Unavailable Results Microbiology Results Visit/Account #[id number] (February 25, 2015 6:24pm - February 25, 2015 7:57pm) Procedure Result THROAT CULTURE THROAT CULTURE Result Instance On February 25, 2015 7:02pm Source: THROAT Organism: [id number] (SNOMED_CT) STREPTOCOCCUS PYOGENES GRP A COLONY COUNT MODERATE AMOUNT Organism: [id number] (SNOMED_CT) ROUTINE MAC COLONY COUNT LARGE AMOUNT GROUP A STREP SCREEN GROUP A STREP SCREEN Result Instance On February 25, 2015 7:02pm Source: THROAT Result Prompts: GROUP A STREP SCREEN NEGATIVE FOR GROUP A STREP ANTIGEN 23139-1: INFLUENZA A/B 68930-1: INFLUENZA A/B Result Instance On February 25, 2015 7:02pm Source: NASO-PHARYNX Result Prompts: INFLUENZA A NEGATIVE FOR INFLUENZA A INFLUENZA B NEGATIVE FOR INFLUENZA B Allergies and Adverse Reactions Allergies and Adverse Reactions Patient Unit Number: [id number] Agent Type Reaction Severity Status NO KNOWN ALLERGIES Drug Allergy Unknown Unknown Active Problem List Problem List Visit/Account #[id number] (February 25, 2015 6:24pm - February 25, 2015 7:57pm) Acute Problems: Code/Condition Comments Documented Start Date Documented Resolv ed Date Code(s) Influenza-like illness ICD10: J11.1 Influenza-like illness ICD9: 487.1 Influenza-like illness SNOMED: 650594359 Influenza-like illness Influenza-like illness ICD10: J11.1 Influenza-like illness ICD9: 487.1 Influenza-like illness SNOMED: 992423785 Influenza-like illness Plan of Care Plan Of Care Visit/Account #[id number] (February 25, 2015 6:24pm - February 25, 2015 7:57pm) Patient Instructions 1. Home, rest 2. Ibuprofen 800mg every 8 hours, tyleno l 1000mg every 8 hours for fever and pain 3. Monitor for cough, shortness of breat h 4. Return to ER with concerns 5. No work until fever-free and symptoms improved x 24 hours. Vital Signs Vital Signs Visit/Account #[id number] (February 25, 2015 6:24pm - February 25, 2015 7:57pm) Sign First Result Last Result Code(s) Body Mass Index Body Mass Index (BMI): 28.0 kg/m2 On 2014 6:22pm 75191-1 BMI (body mass index) Body Mass Index as a Calculated Value 28.9 kg/m2 On February 25, 2015 6:22pm 83919-1 BMI (body mass index) Body Surface Area as a Calculated Value 2.24 m2 On February 25, 2015 6:22pm 3140-1 BSA (body surface area) Height (Feet/Inches) 6 [ft_us] 1 [in_us] On February 25, 2015 6:22pm Temperature in Fahrenheit Temperature (Fahrenheit): 99.4 [degF] O n February 25, 2015 6:22pm Temperature (Fahrenheit): 100.3 [degF] On February 25, 2015 7:30pm 8310-5 Body Temperature Weight in Kilograms Weight (Kilograms): 99.4 kg On January 292014 6:22pm 3141-9 Weight Measured 96562-5 Body weight measured in kilogra ms Functional Status Functional and Cognitive Status No Functional Status Data Medications Inpatient/Ordered Medications - Medicati ons administered during hospital visit Visit/Account #[id number] (February 25, 2015 6:24pm - February 25, 2015 7:57pm) Medication Route Sig/Schedule Precondition/Indication Comments/I nstructions Codes MOTRIN(IBUPROFEN) 400 MG TAB Dose: 800 MG Route .STK-MED Ibuprofen 400 MG Oral Tablet (RxNorm): 1 77475 MOTRIN (IB[facility]PROFEN) [facility] [id number] History Of Encounters Encounters Visit/Account #[id number] (February 25, 2015 6:24pm - February 25, 2015 7:57pm) Account Status Physican Of Record Reason For Visit Visit Diagnosis Start Date/Time Stop Date/Time ER KURT LOWE MD BODYACHES AND FEVER AND SORE THROAT 780.60: FEVER, UNSPECIFIED ICD9 Feb 25, 2015 6:24pm Feb 25, 2015 7:57pm History of Procedures Procedure List No procedures recorded. Discharge Instructions Discharge Instructions Visit/Account #[id number] (February 25, 2015 6:24pm - February 25, 2015 7:57pm) DISCHARGE INSTRUCTIONS Physician Galileo garay Social History Social History No Social History Data. Immunizations Immunizations Patient Unit Number: [id number] Immunizations No immunizations recorded.
--- OUTSIDE RECORDS SUMMARY | 2019-12-04 22:07 | XMS REPORT | Continuity of Care Document ---
Author Author [facility] Organization [facility] Address [address] [place] [address] Phone Support Name Relationship Address Phone [place] [address] Edgar Dave [employer] [address] [place] [address] Provider, [id number] PRS Unknown Unavailable Allergies, Adverse Reactions, Alerts No known allergies. Medications Medication Status Dose Units Route Sig Qty Days Start Date End Date Instructions Acetaminophen-Codeine Active 1 TAB Q4S September 12:31am Mupirocin Active 1 APPL Three Times a Day March 312014 9:25pm Dicyclomine Active 20 MG 4 times a day June 3:32pm Promethazine Active 25 MG 4 times a day July 172015 3:32pm Hydrocodone-Acetaminophen Active 1 - 2 TAB Q4S October 17, 2015 11:02pm 1-2 TAB Hydrocodone-Acetaminophen Active 1 TAB Q4S January 27, 2016 11:43pm 1-2 TAB Hydrocodone-Acetaminophen Active 1 - 2 TAB Q6 October 292016 5:29pm Cephalexin Active 500 MG Three Times a Day 21 September 262017 7:36pm Sulfamethoxazole-Trimethoprim Active 1 TAB Twice a Da y 20 October 02, 2017 6:26pm Cephalexin Active 500 MG Q6 0 October 02, 2017 6:26 pm Oxycodone-Acetaminophen Active 1 - 2 TAB Q4S October 5:23pm Cephalexin Active 500 MG 4 times a day 0 November 19 5:23pm Cyclobenzaprine Active 10 MG Three Times a Day March 09, 2019 10:48pm Oxycodone-Acetaminophen Active 1 TAB Q4H 2018 10:48pm Naproxen Active 500 MG Twice a Day March 09, 2019 10:48pm Albuterol Sulfate Active 1 INH Q6H October 13, 2 019 10:58pm Problems Active Problems Medical Problem Onset Date Status Influenza-like illness Active Influenza-like illness Active Balanoposthitis Active Fracture of fifth metacarpal bone of right hand Active Fracture of fifth metacarpal bone of right hand Active Fracture of fifth metacarpal bone of right hand Active Contusion, lower leg Active Toe contusion Active Puncture wound Active Acute viral syndrome Active Knee pain, right Active Elbow pain, left Active Lower GI bleed Active Pharyngitis Active Heat syncope, initial encounter Active Inactive/Resolved Problems Medical Problem Onset Date Status Follicular cyst of skin Resolved Open fracture of tuft of distal phalanx of finger Resolved Puncture wound Resolved Closed fracture of tuft of distal phalanx of finger Resolved Abscess Resolved Folliculitis Resolved External hemorrhoids Resolved Visit for suture removal Resolved Acute bronchitis Resolved Acute low back pain Resolved Knee pain, right Resolved Elbow pain, left Resolved Anal fissure Resolved Procedures No procedure information available. Relevant Diagnostic Tests and/or Laboratory Data No known relevant diagnostic tests and/or laboratory data. Health Concerns No known health concerns documented Encounters Encounter Location(s) Arrival/Admit Date Discharge/Depart Date Provider(s) Admitted Inpatient -For Conversion Use Only 1997 12:00am Inactive5.67 Provider , Assessments No Assessments Information Available Functional Status No Functional Status information available Goals No Goals Information Available Immunizations No Immunization Information Available Mental Status No Mental Status Information Available Medical Equipment No Medical Equipment Information available Insurance Providers Guarantor Wyatt Garsia Address [facility] [place] [address] Contact Info. Home Phone: Payer Policy Id Coverage Id Subscriber's Name Subscriber Id Effect jenny Date Expiration Date SELF PAY WORKER'S COMPENSATION [id number] Wyatt Garsia [id number] Social History Assigned Sex Male Vital Signs No vital signs result information available.
--- OUTSIDE RECORDS SUMMARY | 2019-12-04 22:07 | XMS REPORT | Continuity Of Care Document ---
Author Author [facility] Organization [facility] Address [address] [place] [address] Phone Care Team Providers Care Bar Machine Operator Name Role Phone UNASSIGNED, ED PHYSICIAN Unavailable Unavailable RAMÍREZ PRYOR, EMMA Sheppard Unavailable SUMAN MELLO DO AT MATTHEW PRYOR, STEVEN Huynh PP Results Results No results recorded. Allergies and Adverse Reactions Allergies and Adverse Reactions Patient Unit Number: [id number] Agent Type Reaction Severity Status NO KNOWN ALLERGIES Drug Allergy Unknown Unknown Active Problem List Problem List Visit/Account #[id number] (October 12 10:48pm - October 13, 2014 1:05am) Acute Problems: Code/Condition Comments Documented Start Date Documented Resolv ed Date Code(s) Fracture of fifth metacarpal bone of right hand ICD10: S62.306A Fracture of fifth metacarpal bone of right hand ICD9: 815.00 Fracture of fifth metacarpal bone of right hand SNOMED: 818325612 Fracture of fifth metacarpal bone of right hand Fracture of fifth metacarpal bone of right hand ICD10: S62.306A Fracture of fifth metacarpal bone of right hand ICD9: 815.00 Fracture of fifth metacarpal bone of right hand SNOMED: 122733427 Fracture of fifth metacarpal bone of right hand Plan of Care Plan Of Care Visit/Account #[id number] (October 12 10:48pm - October 13, 2014 1:05am) Patient Instructions Ice to the area of injury 4 times a day, 20 minutes each. Take medication as needed for pain. Keep the area of injury elevated as much as possible. Keep splint in place until followup with orthopedic physician. Return if new symptoms, worsening symptoms or additional concerns. Followup with orthopedic physician referred to, call in the morning for appointment on Friday. Vital Signs Vital Signs Visit/Account #[id number] (October 12 015 10:48pm - October 13, 2014 1:05am) Sign First Result Last Result Code(s) Body Mass Index Body Mass Index (BMI): 23.0 kg/m2 On 2014 10:47pm 11481-8 BMI (body mass index) Body Mass Index as a Calculated Value 23.8 kg/m2 On October 12, 2014 10:47pm 22826-1 BMI (body mass index) Body Surface Area as a Calculated Value 2.06 m2 On October 12, 2014 10:47pm 3140-1 BSA (body surface area) Height (Feet/Inches) 6 [ft_us] 1 [in_us] On October 12, 2014 1 0:47pm Temperature in Fahrenheit Temperature (Fahrenheit): 98.6 [degF] O n October 12, 2014 10:47pm Temperature (Fahrenheit): 98.1 [degF] O n October 13, 2014 12:58am 8310-5 Body Temperature Weight in Kilograms Weight (Kilograms): 81.82 kg On September 282014 10:47pm 3141-9 Weight Measured 93354-1 Body weight measured in kilogra ms Functional Status Functional and Cognitive Status No Functional Status Data Medications Inpatient/Ordered Medications - Medicati ons administered during hospital visit Visit/Account #[id number] (October 12 015 10:48pm - October 13, 2014 1:05am) Medication Route Sig/Schedule Precondition/Indication Comments/I nstructions Codes TYLENOL #3(ACETAMINOPHEN/CODEINE) 1 TAB TAB Dose: 1 TAB ORAL NOW Rx Order Comments: Order placed as verified: Allergies/Duplicates/Interactions differ from chief order dispatcher Dose Warnings differ from chief order dispatcher Label Comments: MAX REC DOSE ACETAMINOPHEN: 4000MG/24HRS MAY INCREASE FALL RISK Acetaminophen 300 MG / Codeine Phosphate 30 MG Oral Tablet (RxNorm): 523890 TYLENOL #3 (ACETAMINOPHEN/CODEINE) NDC: 79323024244 Discharge Medications - Medications that patient should continue to take. Review with physician Visit/Account #[id number] (October 12 10:48pm - October 13, 2014 1:05am) Medication Route Sig/Schedule Precondition/Indication Comments/I nstructions Codes TYLENOL #3(ACETAMINOPHEN/CODEINE) 1 TAB TABLET Dose: 1 TAB ORAL EVERY 4 HOURS PAIN Acetaminophen 300 MG / Codeine Phosphate 30 MG Oral Tablet [Tylenol with Codeine] (RxNorm): 891363 TYLENOL #3 (ACETAMINOPHEN/CODEINE) NDC: 42393617009 History Of Encounters Encounters Visit/Account #[id number] (October 12 10:48pm - October 13, 2014 1:05am) Account Status Physican Of Record Reason For Visit Visit Diagnosis Start Date/Time Stop Date/Time ER SUMAN MELLO DO HAND INJURY 959.7: LOWER LEG INJURY NOS ICD9 Oct 12, 2014 10:48pm Oct 13, 2014 1:05am History of Procedures Procedure List No procedures recorded. Discharge Instructions Discharge Instructions Visit/Account #[id number] (October 12 10:48pm - October 13, 2014 1:05am) DISCHARGE INSTRUCTIONS Physician Galileo garay Social History Social History No Social History Data. Immunizations Immunizations Patient Unit Number: [id number] Immunizations No immunizations recorded.
--- OUTSIDE RECORDS SUMMARY | 2019-12-04 22:07 | XMS REPORT | Continuity Of Care Document ---
Author Author [facility] Organization [facility] Address [address] [place] [address] Phone Care Team Providers Care Turkey Cleaner Name Role Phone Unavailable Unavailable Unavailable Unavailable Unavailable Unavailable LINDA PRYOR, CLAUDIA De Oliveira AT Results Results No results recorded. Allergies and Adverse Reactions Allergies and Adverse Reactions Patient Unit Number: [id number] Agent Type Reaction Severity Status NO KNOWN ALLERGIES Drug Allergy Unknown Unknown Active Problem List Problem List No problem list recorded. Plan of Care Plan Of Care Visit/Account #[id number] (November 19 3:59pm - November 19, 2017 5:47pm) Patient Instructions 1. Return for any new or worse symptoms 2. Follow up with Ortho Clinic early ne xt week 3. Keep finger clean and dry Vital Signs Vital Signs Visit/Account #[id number] (November 19 3:59pm - November 19, 2017 5:47pm) Sign First Result Last Result Code(s) Temperature in Fahrenheit Temperature (Fahrenheit): 97.9 [degF] O n November 19, 2017 3:59pm Temperature (Fahrenheit): 97.8 [degF] O n November 19, 2017 5:45pm 8310-5 Body Temperature Weight in Kilograms Weight (Kilograms): 122.5000 kg On November 19, 2017 3:59pm 3141-9 Weight Measured Functional Status Functional and Cognitive Status No Functional Status Data Medications Inpatient/Ordered Medications - Medicati ons administered during hospital visit Visit/Account #[id number] (November 19 3:59pm - November 19, 2017 5:47pm) Medication Route Sig/Schedule Precondition/Indication Comments/I nstructions Codes IV Medication Carriers: ANCEF 2 GM/50 ML(CEFAZOLIN SODIUM/NORMAL SALINE) 2 GM/50 ML INJECTION Dose: 50 ML INTRAVEN NOW (Rate: 100 MLS/HR Duration: 30 MIN) Clinical Indication: ABX for suspected i nfection Label Comments: REFRIGERATE * PROTECT FROM LIGHT * ANCEF=KEFZOL Expires 24 HRS after dispensed Carriers: ANCEF 2 GM/50 ML (CEFAZOLIN SODIUM/NORMAL SALINE) NDC: 06279617115 TORADOL INJ(KETOROLAC TROMETHAMINE) 30 M G/ML INJECTION Dose: 0.5 ML INTRAVEN NOW Label Comments: DO NOT EXCEED 5 DAYS OF THERAPY 1 ML Ketorolac Tromethamine 30 MG/ML Inj ection (RxNorm): 3071506 TORADOL INJ (KETOROLAC TROMETHAMINE) NDC: 17514609522 COMPAZINE INJ(PROCHLORPERAZINE) 10 MG/2 ML INJECTION Dose: 2 ML INTRAVEN NOW Label Comments: REC DAILY MAX OF 40 MG MAY INCREASE FALL RISK <For IV orders give slowly at a rate of 5 mg/min> <For IM orders give deep IM in outer quadrant of buttocks> 2 ML Prochlorperazine 5 MG/ML Injection (RxNorm): 413270 COMPAZINE INJ (PROCHLORPERAZINE) NDC: 10634312776 MORPHINE SULFATE 4 MG/ML INJECTION Dose: 6 ML INTRAVEN NOW Label Comments: MAY INCREASE FALL RISK 1 ML Morphine Sulfate 4 MG/ML Cartridge (RxNorm): 6093971 (MORPHINE SULFATE) NDC: 98309698005 Discharge Medications - Medications that patient should continue to take. Review with physician Visit/Account #[id number] (November 19 3:59pm - November 19, 2017 5:47pm) Medication Route Sig/Schedule Precondition/Indication Comments/I nstructions Codes Keflex(CEPHALEXIN) 500 MG CAPSULE Dose: 500 MG ORAL 4 TIMES DAILY Cephalexin 500 MG Oral Capsule (RxNorm): 300608 Keflex (CEPHALEXIN) NDC: 99324402468 PERCOCET 5-325 MG TABLET(OxyCODONE HCL/A CETAMINOPHEN) 1 EACH TABLET Dose: 1-2 TAB ORAL EVERY 4 HOURS PAIN Acetaminophen 325 MG / Oxycodone Hydroch loride 5 MG Oral Tablet [Percocet] (RxNorm): 5608039 PERCOCET 5-325 MG TABLET (OxyCODONE HCL/ACETAMINOPHEN) [facility]: [id number] History Of Encounters Encounters Visit/Account #[id number] (November 19 3:59pm - November 19, 2017 5:47pm) Account Status Physican Of Record Reason For Visit Visit Diagnosis Start Date/Time Stop Date/Time ER CLAUDIA MCKEON MD LAC TO LEFT [address] RD FINGER Not Available November 19, 2017 3:59pm November 19, 2017 5:47pm History of Procedures Procedure List No procedures recorded. Discharge Instructions Discharge Instructions Visit/Account #[id number] (November 19 3:59pm - November 19, 2017 5:47pm) DISCHARGE INSTRUCTIONS Physician Galileo garay Social History Social History No Social History Data. Immunizations Immunizations Patient Unit Number: [id number] Immunizations No immunizations recorded.
--- OUTSIDE RECORDS SUMMARY | 2019-12-04 22:07 | XMS REPORT | Continuity Of Care Document ---
Author Author [facility] Organization [facility] Address [address] [place] [address] Phone Care Team Providers Care Mold Washer Name Role Phone UNASSIGNED, ED PHYSICIAN Unavailable Unavailable CHRISSY PRYOR, KURT Lee AT Results Results No results recorded. Allergies and Adverse Reactions Allergies and Adverse Reactions Patient Unit Number: [id number] Agent Type Reaction Severity Status NO KNOWN ALLERGIES Drug Allergy Unknown Unknown Active Problem List Problem List Visit/Account #[id number] (October 16 9:33pm - October 17, 2015 11:06pm) Acute Problems: Code/Condition Comments Documented Start Date Documented Resolv ed Date Code(s) Toe contusion ICD10: S90.129A Contusion of toe ICD9: 924.3 Contusion of toe SNOMED: 08949256 Contusion of toe Plan of Care Plan Of Care Visit/Account #[id number] (October 16 9:33pm - October 17, 2015 11:06pm) Patient Instructions Follow up with primary care in 1-2 w eeks. Rest, ice and elevation. Take pain medications as needed. Take ibuprofen 800 mg by mouth 3 times a day with food for 5 days. Return to the emergency room if symptoms worsens or has any concern. Vital Signs Vital Signs Visit/Account #[id number] (October 16 9:33pm - October 17, 2015 11:06pm) Sign First Result Last Result Code(s) Body Mass Index Body Mass Index (BMI): 33.0 kg/m2 On Ap ril 19, 2016 9:30pm 14595-4 BMI (body mass index) Body Mass Index as a Calculated Value 33.1 kg/m2 On October 17, 2015 9:30pm 95835-2 BMI (body mass index) Body Surface Area as a Calculated Value 2.37 m2 On October 17, 2015 9:30pm 3140-1 BSA (body surface area) Height (Feet/Inches) 6 [ft_us] 1 [in_us] On October 17, 2015 9 :30pm Temperature in Fahrenheit Temperature (Fahrenheit): 98.0 [degF] O n October 17, 2015 9:30pm 8310-5 Body Temperature Weight in Kilograms Weight (Kilograms): 113.64 kg On October 17, 2015 9:30pm 3141-9 Weight Measured 05850-3 Body weight measured in kilogra ms Functional Status Functional and Cognitive Status No Functional Status Data Medications Inpatient/Ordered Medications - Medicati ons administered during hospital visit Visit/Account #[id number] (October 16 9:33pm - October 17, 2015 11:06pm) Medication Route Sig/Schedule Precondition/Indication Comments/I nstructions Codes NORCO 7.5-325(HYDROcodone BIT/ACETAMINOP HEN) 1 TAB TAB Dose: 1 TAB ORAL NOW Label Comments: <<may be substituted for 7.5/500>> REC MAX DAILY ACETAMINOPHEN: 4000 MG/24 HR MAY INCREASE FALL RISK Acetaminophen 325 MG / Hydrocodone Angelo trate 7.5 MG Oral Tablet (RxNorm): 535409 NORCO 7.5-325 (HYDROcodone BIT/ACETAMINOPHEN) NDC: 26178969761 Discharge Medications - Medications that patient should continue to take. Review with physician Visit/Account #[id number] (October 16 9:33pm - October 17, 2015 11:06pm) Medication Route Sig/Schedule Precondition/Indication Comments/I nstructions Codes NORCO 5-325 TABLET(HYDROcodone BIT/ACETA MINOPHEN) 1 TAB TABLET Dose: 1-2 TAB ORAL EVERY 4 HOURS PAIN Rx Instructions: 1-2 TAB Acetaminophen 325 MG / Hydrocodone Angelo trate 5 MG Oral Tablet (RxNorm): 801961 NORCO 5-325 TABLET (HYDROcodone BIT/ACETAMINOPHEN) NDC: 24140168914 History Of Encounters Encounters Visit/Account #[id number] (October 16 016 9:33pm - October 17, 2015 11:06pm) Account Status Physican Of Record Reason For Visit Visit Diagnosis Start Date/Time Stop Date/Time LAMONT LOWE MD CONCRETE SLAB FELL ON RIGHT FOOT Not Available Oct 17, 2015 9:33pm Oct 17, 2015 11:06pm History of Procedures Procedure List No procedures recorded. Discharge Instructions Discharge Instructions Visit/Account #[id number] (October 16 016 9:33pm - October 17, 2015 11:06pm) DISCHARGE INSTRUCTIONS Physician Galileo garay Social History Social History No Social History Data. Immunizations Immunizations Patient Unit Number: [id number] Immunizations No immunizations recorded.
--- OUTSIDE RECORDS SUMMARY | 2019-12-04 22:07 | XMS REPORT | Continuity Of Care Document ---
Author Author [facility] Organization [facility] Address [address] [place] [address] Phone Care Team Providers Care Sba Business Development Officer Name Role Phone MATTHEW PRYOR, STEVEN Huynh PP SRIKANTH PRYOR, NICCI Thorpe AT Results Results No results recorded. Allergies and Adverse Reactions Allergies and Adverse Reactions Patient Unit Number: [id number] Agent Type Reaction Severity Status NO KNOWN ALLERGIES Drug Allergy Unknown Unknown Active Problem List Problem List Visit/Account #[id number] (December 04 11:52pm - December 05, 2014 2:19am) Acute Problems: Code/Condition Comments Documented Start Date Documented Resolv ed Date Code(s) Fracture of fifth metacarpal bone of right hand ICD10: S62.306A Fracture of fifth metacarpal bone of right hand ICD9: 815.00 Fracture of fifth metacarpal bone of right hand SNOMED: 585818136 Fracture of fifth metacarpal bone of right hand Plan of Care Plan Of Care Visit/Account #[id number] (December 04 11:52pm - December 05, 2014 2:19am) Patient Instructions Wear splint for comfort - you may remove to shower. Prop arm up at rest. Take ibuprofen or tylenol over the counter as directed for pain. Return if symptoms worsen. Vital Signs Vital Signs Visit/Account #[id number] (December 04 11:52pm - December 05, 2014 2:19am) Sign First Result Last Result Code(s) Temperature in Fahrenheit Temperature (Fahrenheit): 97.8 [degF] O n December 04, 2014 11:50pm Temperature (Fahrenheit): 98.2 [degF] O n December 05, 2014 2:19am 8310-5 Body Temperature Weight in Kilograms Weight (Kilograms): 80.9 kg On December 04, 2014 11:50pm 3141-9 Weight Measured 53413-5 Body weight measured in kilogra ms Functional Status Functional and Cognitive Status No Functional Status Data Medications Medications Patient Unit Number: [id number] Medication No medications recorded. History Of Encounters Encounters Visit/Account #[id number] (December 04 11:52pm - December 05, 2014 2:19am) Account Status Physican Of Record Reason For Visit Visit Diagnosis Start Date/Time Stop Date/Time ER NICCI DUKE MD RIGHT ARM INJURY Not Available Dec 04, 2014 11:52pm Dec 05, 2014 2:19am History of Procedures Procedure List No procedures recorded. Discharge Instructions Discharge Instructions Visit/Account #[id number] (December 04 11:52pm - December 05, 2014 2:19am) DISCHARGE INSTRUCTIONS Physician Galileo garay Social History Social History No Social History Data. Immunizations Immunizations Patient Unit Number: [id number] Immunizations No immunizations recorded.
--- OUTSIDE RECORDS SUMMARY | 2019-12-04 22:07 | XMS REPORT | Continuity Of Care Document ---
Author Author [facility] Organization [facility] Address [address] [place] [address] Phone Care Team Providers [employer] Cook Name Role Phone UNASSIGNED, ED PHYSICIAN Unavailable Unavailable KURT LOWE MD AT Results Results No results recorded. Allergies and Adverse Reactions Allergies and Adverse Reactions Patient Unit Number: [id number] Agent Type Reaction Severity Status NO KNOWN ALLERGIES Drug Allergy Unknown Unknown Active Problem List Problem List Visit/Account #[id number] (January 26 10:47pm - January 27, 2016 11:51pm) Acute Problems: Code/Condition Comments Documented Start Date Documented Resolv ed Date Code(s) Contusion, lower leg ICD10: S80.10XA Contusion of lower leg ICD9: 924.10 Contusion of lower leg SNOMED: 73408042 Contusion of lower leg Plan of Care Plan Of Care Visit/Account #[id number] (January 26 10:47pm - January 27, 2016 11:51pm) Patient Instructions Followup with primary care DrNani in 3-5 da ys. Rest, ice and elevation. Jose Eduardo wrap to the mid leg. Take pain medications as needed. Return to the emergency room if symptoms worsens or has any concern. Vital Signs Vital Signs Visit/Account #[id number] (January 26 10:47pm - January 27, 2016 11:51pm) Sign First Result Last Result Code(s) Body Mass Index Body Mass Index (BMI): 33.0 kg/m2 On 2015 10:47pm 02467-7 BMI (body mass index) Body Mass Index as a Calculated Value 33.1 kg/m2 On January 27, 2016 10:47pm 19692-6 BMI (body mass index) Body Surface Area as a Calculated Value 2.37 m2 On January 27, 2016 10:47pm 3140-1 BSA (body surface area) Height (Feet/Inches) 6 [ft_us] 1 [in_us] On January 27, 2016 10 :47pm Temperature in Fahrenheit Temperature (Fahrenheit): 98.5 [degF] O n January 27, 2016 10:47pm Temperature (Fahrenheit): 98.4 [degF] O n January 27, 2016 11:50pm 8310-5 Body Temperature Weight in Kilograms Weight (Kilograms): 113.64 kg On December 302015 10:47pm 3141-9 Weight Measured 82205-7 Body weight measured in kilogra ms Functional Status Functional and Cognitive Status No Functional Status Data Medications Discharge Medications - Medications that patient should continue to take. Review with physician Visit/Account #[id number] (January 26 10:47pm - January 27, 2016 11:51pm) Medication Route Sig/Schedule Precondition/Indication Comments/I nstructions Codes NORCO 5-325 TABLET(HYDROcodone BIT/ACETA MINOPHEN) 1 TAB TABLET Dose: 1 TAB ORAL EVERY 4 HOURS PAIN Rx Instructions: 1-2 TAB Acetaminophen 325 MG / Hydrocodone Angelo trate 5 MG Oral Tablet (RxNorm): 886956 NORCO 5-325 TABLET (HYDROcodone BIT/ACETAMINOPHEN) [facility]: [id number] History Of Encounters Encounters Visit/Account #[id number] (January 26 10:47pm - January 27, 2016 11:51pm) Account Status Physican Of Record Reason For Visit Visit Diagnosis Start Date/Time Stop Date/Time LAMONT LOWE MD RLE PAIN Not Available Jan 27, 2016 10:47pm Jan 27, 2016 11:51pm History of Procedures Procedure List No procedures recorded. Discharge Instructions Discharge Instructions Visit/Account #[id number] (January 26 10:47pm - January 27, 2016 11:51pm) DISCHARGE INSTRUCTIONS Physician Documen tation Social History Social History No Social History Data. Immunizations Immunizations Patient Unit Number: [id number] Immunizations No immunizations recorded.
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
[2019-12-04 22:46] VITALS: BP 148/84
--- NOTE | 2019-12-05 08:30 | Diagnostic Imaging Report ---
INDICATION: Pain. 3 views were obtained. FINDINGS: The alignment is normal. There is no fracture or dislocation. There is an old posttraumatic deformity of the 5th metacarpal. IMPRESSION: No acute fracture or dislocation. Dictated by: Dictated on workstation # [id number]
== END 2019-12-04 22:50 | disposition home or self-care (01) ==
LOC: ER 22:02
DX: S60.221A Contusion of right hand, initial encounter (principal); W23.1XXA Caught, crushed, jammed, or pinched between stationary objects, initial encounter
CPT/HCPCS: 73130